=== PATIENT | male | born 1970 | race Caucasian/White ===

== ENCOUNTER 2024-02-19 00:27 | Emergency (ER) | payer BC, SELFPAY ==
[2024-02-19 00:28] VITALS: BP 141/82; PULSE 71; RESP 18; TEMP 36.4; O2SAT 97; BMI 25.5
--- NOTE | 2024-02-19 01:02 | EDS_ITS ---
HPI History of Present Illness HPI Narrative: Patient presents with left knee laceration that occurred tonight. Patient states that he tripped and fell down some stairs. Patient states he hit his knee on the corner of a brick. Patient states the brick did not break. Patient denies any head injury or loss of consciousness. Patient states his last tetanus was 7 years ago. Patient states he has an allergy to tetanus vaccine. Patient denies any paresthesias or weakness. Patient denies any difficulty ambu lating. Patient describes his pain as aching. Patient states the bleeding stopped after several minutes of pressure. Chief Complaint: Laceration Onset/Context/Timing Onset: Today Context: Sudden Onset Timing: Continuous Quality of Pain: Aching Location: Left knee Worsened by: Nothing Relieved by: Nothing Associated Symptoms Associated Symptoms: Negative for Parasthesia, Weakness or Loss of Funtion Narrative Tetanus Immunization: 5-10 years [facility] Medical History Hypertension Home Medications ?Medication ?Instructions ?Recorded ?Last Taken ?Type cephalexin 500 mg capsule 500 mg PO Q6 #40 CAPSULES 02/19/24 Unknown Rx hydrochlorothiazide 25 mg tablet 25 mg PO DAILY 02/19/24 Unknown History metoprolol succinate 25 mg 25 mg PO DAILY 02/19/24 Unknown History tablet,extended release 24 hr Allergy/AdvReac Type Severity Reaction Status Date / Time Tetanus Vaccines and Toxoid Allergy Other Verified 02/19/24 00:31 Social History Smoking Status: Current every day smoker tobacco type: cigarettes ROS ROS ED Constitutional Constitutional ED: Denies chills or fever(s) Eyes Eyes: Denies blurry vision or change in vision ENT ENT ED: Denies rhinorrhea or sore throat Cardiovascular Cardiovascular: Denies chest pain or palpitations Respiratory/Chest Respiratory/Chest: Denies cough or dyspnea Gastrointestinal Gastrointestinal: Denies nausea or vomiting Genitourinary Genitourinary ED: Denies dysuria or hematuria Musculoskeletal Musculoskeletal: Denies back pain or neck pain Integumentary Denies abscess or rash Neurologic Neurologic: Denies headache(s) or weakness Allergic/Immunologic Allergic/Immunologic ED: Denies mouth swelling or urticaria EXAM Physical Exam Const Vital Signs: 02/19/24 00:28 Temperature 97.6 F L Temperature Source Oral Pulse Rate 71 Respiratory Rate 18 Blood Pressure 141/82 H Blood Pressure Mean 101 Pulse Ox 97 Oxygen Delivery Method Room Air Positive well nourished and well developed General Appearance ED: well developed HEENT Reports moist mucous membranes Neck full ROM and supple Extremity Extremity Narrative: There is a 2.5 cm full-thickness linear laceration over the anterior aspect of the left knee. There is no bony crepitance or step-off. There is no joint effusion noted. There is full range of motion. Extensor mechanism is intact. Strength is 5/5 bilaterally in the lower extremities. There are no sensory deficits noted. Pedal pulses are equal bilaterally. Neuro oriented x3, CN's II-XII intact bilaterally, moves all extremities and no sensory deficits noted Sensorium / Orientation: alert Motor Exam: strength 5/5 throughout Psych mental status grossly normal MDM MDM MDM Narrative Medical decision making narrative: The wound was cleaned and irrigated with copious amounts of normal saline. The wound was anesthetized with 1% plain lidocaine locally. The wound was closed with 4 simple interrupted #4-0 nylon sutures under sterile technique. Patient tolerated the procedure well. Bacitracin dressing was applied. Patient was given a dose of Keflex here. Patient was given a prescription for Keflex. Patient was instructed to keep the wound clean and dry. Patient was instructed to follow-up with his primary care physician in 7 days for wound recheck and suture removal. Patient understood and was agreeable with the plan. All questions were answered. Procedures Lacerations Left knee: Length: 2.5 cm Depth: Sub Q Shape: Linear Prep: Sterile Conditions and Chlorhexadine Laceration repair: Irrigated, Lidocaine, Local, Skin sutures and Wound explored Irrigated (ml): 100 Number of Sutures/Albaro: 4 Suture Information: Ethilon, Simple and 4-0 Discharge Plan Triage Chief Complaint: Laceration ED Provider: Skip Iglesias Dx/Rx/DC Orders Clinical Impression: Laceration of left knee, Fall Instructions: ED Laceration Extremity, ED Laceration Minimize Scars Prescriptions: New cephalexin 500 mg capsule 500 mg PO Q6 Qty: 40 0RF No Action metoprolol succinate 25 mg tablet extended release 24 hr 25 mg PO DAILY hydrochlorothiazide 25 mg tablet 25 mg PO DAILY Primary Care Provider: Rj Tamez Referrals: Rj Tamez MD [Primary Care Provider] - Print Language: [place] Disposition Disposition: Home, Self Care
[2024-02-19] MEDS: Lidocaine 1% (20 ml mdv) 20 ML Vial INFILT (01:17)
[2024-02-19 02:00] VITALS: BP 127/76; PULSE 67; RESP 18; TEMP 36.1; O2SAT 97
[2024-02-19] MEDS: Cephalexin 500 MG Capsule PO (02:03)
== END 2024-02-19 02:04 | disposition home or self-care (01) ==
PROVIDERS: Emergency Provider Emergency Medicine; PCP Family Medicine; Visit Provider Emergency Medicine
DX: S81.012A Laceration without foreign body, left knee, initial encounter (principal); W10.9XXA Fall (on) (from) unspecified stairs and steps, initial encounter; I10 Essential (primary) hypertension; F17.210 Nicotine dependence, cigarettes, uncomplicated; Z79.899 Other long term (current) drug therapy
CPT/HCPCS: 12001; 99283